=== PATIENT | female | born 1945 | race Caucasian/White ===

== ENCOUNTER → 2017-08-04 12:58 | Outpatient (REF) | payer MEDICARE, OTHER, SELFPAY ==
[2017-08-04 15:00] LABS: Alanine Aminotransferase 29 U/L (12-78); Albumin Level 2.9 gm/dL (3.4-5.0); Alkaline Phosphatase 186 U/L (46-116); Bilirubin,Total 0.2 mg/dL (0.2-1.0); Total Protein,Serum 6.8 gm/dL (6.4-8.2)
[2017-08-04 15:14] LABS: Bilirubin,Direct 0.1 mg/dL (0.0-0.2)
[2017-08-04 15:15] LABS: Aspartate Amino Transferase 26 U/L (15-37)
[2017-08-06 18:48] LABS: HIV Screen 4th Generation wRfx Non Reactive (Non Reactive)
== END ==
LOC: LAB 12:58
PROVIDERS: Visit Provider Internal Medicine
DX: F20.0 Paranoid schizophrenia (principal); E11.9 Type 2 diabetes mellitus without complications
CPT/HCPCS: 80076; 86703; G0432

== ENCOUNTER → 2017-11-06 08:18 | Outpatient (CLI) | payer MEDICARE, MEDICAID, SELFPAY ==
--- NOTE | 2017-11-06 08:19 | MM_ITS ---
MM Dig screening mamm BI w/CAD CAD Screening COMPARISON: Digital mammograms with CAD 08/05/2016 INDICATION: Patient is from [facility] and has dementia, difficult positioning the patient. No history available TECHNIQUE: Standard CC and MLO images were obtained. R2 CAD reviewed. FINDINGS: Prominent diffuse heterogenic fibroglandular densities are seen throughout both breasts. There are multiple scattered benign-appearing calcifications in each breast. There is no suspicious lesion and there are no suspicious microcalcifications. IMPRESSION: Diffusely dense parenchymal pattern with no suspicious lesion seen BI-RADS Category: 2 Benign Finding(s) RECOMMENDED FOLLOW-UP: 1YR - 1 YEAR FOLLOW-UP (A letter has been sent to the patient regarding results of the study.)
== END ==
PROVIDERS: PCP Emergency Medicine; Visit Provider Emergency Medicine
DX: Z12.31 Encounter for screening mammogram for malignant neoplasm of breast (principal)
CPT/HCPCS: 77067

== ENCOUNTER → 2018-03-23 10:20 | Outpatient (CLI) | payer MEDICARE, MEDICAID, SELFPAY ==
--- NOTE | 2018-03-23 10:24 | CA_ITS ---
PROCEDURE: 2-D M-mode and color Doppler study INDICATIONS FOR THE TEST: Chest pain COPD Heart Murmur Tobacco Smoking Palpitations Fatigue Syncope Edema+ Hypertension+Diabetes Mellitus+ Rheumatic Fever SOB STALLINGS+Obesity Hyperlipidemia Family History HD Additional History CVA, ABN EKG PATIENT INFORMATION HEIGHT: 63 WEIGHT:195 GENDER: Female B/P:154/75 2-D/M-MODE INTERPRETATION: 2-D MEASUREMENTS OBSERVED VALUES IN CMS Right Ventricular Dimension (RVDd) 1.2 Interventricular Septum (Thickness)(IVsd) 1.5 Left Ventricular Internal Dimensions(LVIDd) 4.7 Left Ventricular Posterior Wall (Thickness)(LVPWd) 0.8 Aortic Root 2.4 Aortic Cusp Separation 1.6 Left Atrial Dimensions (LAD) 3.3 2D 1. Left atrium is mildly enlarged, left ventricle is normal size, mild concentric left ventricular hypertrophy, visually estimated ejection fraction of 55% with no regional wall motion abnormality 2. The right atrium and right ventricle are normal size and contractility. 3. The aortic valve is minimally thickened and calcified leaflet continue to display mobility. 4. The mitral and tricuspid valvular grossly normal. 5. The pulmonic valve is poorly visualized. 6. No significant pericardial effusion noted. DOPPLER INTERROGATION: Doppler interrogation of the aortic, mitral and tricuspid valvular presence of mild mitral and tricuspid regurgitation, tricuspid regurgitation jet velocity is inadequate for calculation of the right ventricular systolic pressure, Doppler evidence of impaired LV relaxation seen, tissue Doppler is inconclusive for left atrial pressure. CONCLUSION: 1. Mildly enlarged left atrium, normal left ventricular size, mild concentric left ventricular hypertrophy, visually estimated ejection fraction 55% with no regional wall motion abnormality, Doppler evidence of impaired LV relaxation seen, tissue Doppler is inconclusive for left atrial pressure. 2. Mild mitral and tricuspid regurgitation 3. No significant pericardial effusion noted.
--- NOTE | 2018-03-23 10:24 | XR_ITS ---
XR chest 2V HISTORY: ITS.REASON: cough ORDERING PHYSICIAN: Camden Nelson MD PATIENT AGE: 72 years COMPARISON: None FINDINGS: The cardiomediastinal silhouette and pulmonary vascularity are within normal limits. The lungs are clear without infiltrates, suspicious nodules, or pleural effusions. There are mild atelectatic or fibrotic changes overlying the lateral aspect of the lingula No acute bony abnormalities. IMPRESSION: No acute finding. Minimal atelectasis or fibrosis in the lingula
== END ==
PROVIDERS: PCP Emergency Medicine; Visit Provider Internal Medicine Cardiovascular Disease
DX: E11.9 Type 2 diabetes mellitus without complications (principal); F20.0 Paranoid schizophrenia; I10 Essential (primary) hypertension; I69.398 Other sequelae of cerebral infarction; M62.81 Muscle weakness (generalized); R05 Cough; R06.00 Dyspnea, unspecified; R20.9 Unspecified disturbances of skin sensation
CPT/HCPCS: 71046; 93306